=== PATIENT | male | born 1955 | race Caucasian/White ===

== ENCOUNTER → 2019-06-03 | Outpatient (CLI) | payer OTHER ==
--- NOTE | 2019-06-04 13:21 | RAD ---
MR#: [id number] Date of Study: 06/03/2019 Ordering Physician: GROVER PAEZ, Referring Physician: VANNESSA HIGGINS Tech: RT Chelita (R) (N) APPROVED REPORT Test Type: Exercise Stress Nurse/Tech: Aura Grady Test Indications: Cardiac hx, bypass 2010 Resting Heart Rate: 65 bpm Resting Blood Pressure: 129/70mmHg Pretest Chest Pain: None Stress Symptoms ST CHANGES V3. RESOLVED WITH REST POST EXERCISE Reason for Termination: Reached target heart rate Target HR: Yes Max HR: 136 bpm 100% of Maximum Predicted HR: 132 bpm Exercise duration: 10:00 min:sec, 3 Stage Exercise capacity: 10.0METs Max Blood Pressure: 153/83mmHg Blood Pressure response to exercise: Normal blood pressure response during stress. Heart Rate response to exercise: Normal increase Chest Pain: No. Arrhythmia: No. ST Change: Yes. V3 resolved at rest INTERPRETATION Stress EKG Conclusion: Baseline EKG showed sinus rhythm with old anteroseptal DE. No diagnostic evide nce of ischemia at peak stress. No arrhythmias. Imaging Protocol IMAGE PROTOCOL: Rest Tc-99m/stress Tc-99m 1 day Rest: Stress: Viability: Radiopharm.Tc99m XhqsuqupaAb46q Sestamibi Xrgb98vWn 34mCi Duration 15min. 15min. Img Date 06/03/2019 06/03/2019 Inj-Img Vyhf03mld. 60min. Rest Admin Site:IV - Right AntecubitalAdministrator: RT Chelita (R)(N) Stress Admin Site: IV - Right AntecubitalAdministrator: RT Chelita (R)(N) STRESS DATA End Diast. Vol.123.0mlAv. Heart Rate78.0bpm End Syst. Vol.55.0mlCO Index BSA5.3L/min Myocardial Uavg755.0gEject. Usebqlsk80.0% Stress Rates Pk. Fill Rate2.11EDV/secLVtime Pk. Fill 93.39msec Pk. Empty Rate3.04ESV/secLVtime Pk. Knnxs595.68msec / Pk. Fill1.37EDV/sec Stress Scores Regional WT0.00Summed WT9.00 Regional WM0.00Summed WM27.00 LV Perfusion Scintigraphic images showed moderate predominantly fixed defect involving the mid to distal anterior wall and apical wall consistent with previous myocardial infarction with small amount of reversibilit y consistent with holly-infarct ischemia. Wall Motion Abnormal septal wall motion and apical wall hypokinesis with ejection fraction calculated at 48%. LV Perf. Quant 17 Seg. SSS23.00 17 Seg. SRS19.00 17 Seg. SDS4.00 Stress Defect Extent (% LAD)66.30Rest Defect Extent (% LAD)63.10Rev. Defect Extent (% LAD)20.00 Stress Defect Extent (% LCX) 30.00Rest Defect Extent (% LCX)25.00Rev. Defect Extent (% LCX)23.80 Stress Defect Extent (% RCA)2.20Rest Defect Extent (% RCA)3.30Rev. Defect Extent (% RCA)0.00 Stress Defect Extent (% MANDO)44.10Rest Defect Extent (% MANDO)39.80Rev. Defect Extent (% MANDO)17.00 Conclusion 1. Treadmill exercise cardioisotope stress test showed moderate infarct involving the mid to distal a nterior wall and apical wall small amount of holly-infarct ischemia. 2. Abnormal septal wall motion and apical wall hypokinesis with ejection fraction calculated at 48%. 3. Low to intermediate risk for cardiac events. Signed by : Dandy Hagen, Electronically Approved : 06/03/2019 13:26:35
== END | disposition home or self-care (01) ==
LOC: NM 08:22
PROVIDERS: ATTEND Internal Medicine Cardiovascular Disease
DX: I25.2 Old myocardial infarction (principal); I10 Essential (primary) hypertension; Z79.01 Long term (current) use of anticoagulants
CPT/HCPCS: 78452; 93017; A9500

== ENCOUNTER → 2019-06-05 | Outpatient (CLI) | payer OTHER ==
--- NOTE | 2019-06-05 10:50 | CARD ---
MR#: [id number] Date of Study: 06/05/2019 Ordering Physician: GROVER PAEZ, Referring Physician: GROVER PAEZ, Tech: Soni Perez APPROVED REPORT EXAM: Two-dimensional and M-mode echocardiogram with Doppler and color Doppler. Other Information Quality : AverageHR: 52bpm INDICATION Cardiomyopathy 2D DIMENSIONS RVDd3.2 (2.9-3.5cm)Left Atrium(2D)3.7 (1.6-4.0cm) IVSd1.1 (0.7-1.1cm)Aortic Root(2D)2.8 (2.0-3.7cm) LVDd5.6 (3.9-5.9cm)LVOT Diameter2.0 (1.8-2.4cm) PWd1.1 (0.7-1.1cm)LVDs3.3 (2.5-4.0cm) FS (%) 40.1 %SV106.2 ml LVEF(%)70.1 (>50%) Aortic Valve AoV Peak Saroj.145.7cm/sAoV VTI35.2cm AO Peak GR.8.5mmHgLVOT Peak Saroj.84.1cm/s LVOT VTI 18.20cmAO Mean GR.5mmHg NITA (VMAX)1.85an3ATA (VTI)1.61cm2 Mitral Valve MV E Qiitikuk42.1cm/sMV DECEL [id number] MV A Dmhdyyef19.1cm/sE/A Ratio1.0 Tricuspid Valve TR P. Lryygrbh412sz/sRAP IPPULIKT7pdVk TR Peak Gr.43enTpYYRA63xuGg Pulmonary Vein S1 Njfluoma13.8cm/sD2 Luaeihnb93.8cm/s LEFT VENTRICLE The left ventricle is normal size. There is mild concentric left ventricular hypertrophy. The systoli c function is mildly impaired. The Ejection Fraction is 45%. There is hypokinesis of the apex and hyp okinesis of the apical septal wall. Transmitral Doppler flow pattern is Grade II-pseudonormal filling dynamics. RIGHT VENTRICLE The right ventricle is borderline dilated. There is normal right ventricular wall thickness. The righ t ventricular systolic function is normal. ATRIA The left atrium size is normal. The right atrium size is normal. The interatrial septum is intact wit h no evidence for an atrial septal defect or patent foramen ovale as noted on 2-D or Doppler imaging. AORTIC VALVE The aortic valve is normal in structure and function. Doppler and Color Flow revealed no significant aortic regurgitation. There is no significant aortic valvular stenosis. MITRAL VALVE The mitral valve is normal in structure and function. There is no evidence of mitral valve prolapse. There is no mitral valve stenosis. Doppler and Color Flow revealed no mitral valve regurgitation note d. TRICUSPID VALVE The tricuspid valve is normal in structure and function. Doppler and Color Flow revealed trace tricus pid regurgitation with an estimated PAP of21 mmHg. There is no tricuspid valve stenosis. PULMONIC VALVE The pulmonic valve is not well visualized. Doppler and Color Flow revealed no pulmonic valvular regur gitation. There is no pulmonic valvular stenosis. GREAT VESSELS The aortic root is normal in size. The IVC is normal in size and collapses >50% with inspiration. PERICARDIAL EFFUSION There is no evidence of significant pericardial effusion. Critical Notification Critical Value: No <Conclusion> The systolic function is mildly impaired. The Ejection Fraction is 45%. There is hypokinesis of the apex and hypokinesis of the apical septal wall. Signed by : Francis Nunez, Electronically Approved : 06/05/2019 10:49:51
== END | disposition home or self-care (01) ==
LOC: ECHO 08:54
PROVIDERS: ATTEND Internal Medicine Cardiovascular Disease
DX: I51.7 Cardiomegaly (principal); I25.5 Ischemic cardiomyopathy
CPT/HCPCS: 93306